=== PATIENT | female | born 1970 | race Caucasian/White ===

== ENCOUNTER 2018-07-26 15:00 | Emergency (ER) | payer OTHER ==
[~2018-07-26] VITALS: Ht 157.5 cm; Wt 81.6 kg
[2018-07-26] MEDS ORDERED: SYNTHROID200 MCG PO (15:40)
== END 2018-07-26 17:21 | disposition home or self-care (01) ==
LOC: ER 15:00
DX: M65.231 Calcific tendinitis, right forearm (principal); M25.521 Pain in right elbow

== ENCOUNTER 2022-07-08 12:38 | Emergency (ER) | payer OTHER ==
[~2022-07-08] VITALS: Ht 157.5 cm; Wt 68.0 kg
[~2022-07-08 12:38] MED LIST: SYNTHROID200 MCG PO
[2022-07-08] MEDS ORDERED: BENADRYL ALLERG25 MG (12:59)
[2022-07-08] MEDS ORDERED: MILLIPRED5 MG (12:59)
== END 2022-07-08 15:36 | disposition home or self-care (01) ==
LOC: ER 12:38
DX: T78.49XA Other allergy, initial encounter (principal); X58.XXXA Exposure to other specified factors, initial encounter